=== PATIENT | female | born 1970 | race Caucasian/White ===

== ENCOUNTER 2021-05-01 21:28 | Emergency (ER) | payer MEDICAID ==
[~2021-05-01] VITALS: Ht 160 cm; Wt 85.3 kg
[2021-05-01 21:49] VITALS: BP 154/97
--- NOTE | 2021-05-01 21:52 | NUR ---
TO LOBBY A/W BED AMBULATORY
[2021-05-01 22:16] LABS: APPEARANCE,URINE HAZY (CLEAR); BILIRUBIN,URINE NEGATIVE (NEGATIVE); BLOOD, URINE 2+ (NEGATIVE); COLOR,URINE YELLOW (YELLOW); LEUKOCYTE ESTERASE ,URINE 3+ (NEGATIVE); NITRITE, URINE POSITIVE (NEGATIVE); UGLUCOSE NEGATIVE (NEGATIVE)
[2021-05-01 22:26] LABS: WBC,URINE 16-25 (MOD) /HPF (0-5)
--- NOTE | 2021-05-01 23:04 | NUR ---
PATIENT LEFT WITHOUT BEING SEEN BY DR. MICHEL. NO FURTHER CARE PROVIDED FOR PATIENT.
--- NOTE | 2021-05-04 17:56 | NUR ---
CRITICAL POSITIVE LAB RESULT RECEIVED FOR [facility]. COPY SENT TO INFECTION CONTROL.
== END 2021-05-01 23:04 | disposition left against medical advice (07) ==
LOC: MED 21:28
DX: Z53.21 Procedure and treatment not carried out due to patient leaving prior to being seen by health care provider (principal)
CPT/HCPCS: 81001; 87086; 99281